=== PATIENT | male | born 1955 | race Caucasian/White ===

== ENCOUNTER → 2016-11-11 | Outpatient (CLI) | payer BC | END | disposition home or self-care (01) | LOC: GMAJ 10:57 | PROVIDERS: ATTEND Family Medicine | DX: I10 Essential (primary) hypertension (principal) ==

== ENCOUNTER → 2017-04-12 | Outpatient (CLI) | payer BC | END | disposition home or self-care (01) | LOC: GMAJ 14:28 | PROVIDERS: ATTEND Family Medicine | DX: Z00.00 Encounter for general adult medical examination without abnormal findings (principal) ==

== ENCOUNTER → 2017-05-19 | Outpatient (CLI) | payer BC ==
--- NOTE | 2017-05-20 16:54 | US ---
EXAM DESCRIPTION: Carotid Duplex: Ultrasound. CLINICAL HISTORY: OCCLUSION AND STENOSIS OF BILATERAL CAROTID ARTERI COMPARISON: None. TECHNIQUE: Transcutaneous scanning utilizing 2-dimensional and Doppler modes to evaluate the bilateral carotid systems and vertebral arteries. Percentage of diameter of stenosis or no stenosis recorded will be based upon NASCET criteria. FINDINGS: Peak systolic/end diastolic (CM-Sec) CCA Right 85/9 Left 108/39. ICA Right proximal 76/37, mid 81/36. Left proximal 54/22, Distal 66/27. Vertebral Right 57/18 Left 59/24. ECA (PS Only) Right 88 left 180. ICA/CCA peak systolic ratio: Right 1.0 Left 0.6 ICA/CCA end diastolic ratio: Right 4.0 Left 0.7 Vertebral arteries: antegrade flow. Comments: Significant atherosclerotic calcification in the bilateral common carotid bulbs and proximal ICAs. There is stenosis in the distal right CCA is 27%, diameter stenosis 21%. Area stenosis in the right CCA bulb is 21%, diameter stenosis 30%. Area stenosis in the right proximal ICA is 34%, diameter stenosis 62%. Spectral broadening in the waveform of the proximal right ICA. Area stenosis in the mid left CCA is 30%, diameter stenosis 51%. Area stenosis in the left CCA bulb is 13%, diameter stenosis 22%. Area stenosis in the proximal right ICA is 43%, identical to the diameter stenosis. Color turbulent flow in the proximal left ICA and spectral broadening in the waveform. IMPRESSION: 1. Doppler evaluation of the bilateral carotid systems and vertebral arteries shows a hemodynamically significant stenosis greater than 70%,in the proximal right ICA, but this is not seen on two-dimensional evaluation. Consider CTA because of the discordance of these results. 2. Moderate amount of plaque seen in the carotid arteries bilaterally. Bilateral vertebral arteries showed antegrade-cephalad flow. Electronically signed by: Jovanny Mejia MD 05/20/2017 4:53 PM CDT
== END | disposition home or self-care (01) ==
LOC: US 13:51
PROVIDERS: ATTEND Family Medicine
DX: I65.23 Occlusion and stenosis of bilateral carotid arteries (principal)

== ENCOUNTER → 2018-03-03 | Outpatient (CLI) | payer BC, MEDICARE | LOC: GMAJ 11:04 | PROVIDERS: ATTEND Family Medicine | DX: Z12.5 Encounter for screening for malignant neoplasm of prostate (principal) ==

== ENCOUNTER → 2019-04-06 | Outpatient (CLI) | payer BC, MEDICARE ==
--- NOTE | 2019-04-06 09:42 | MRI ---
EXAM DESCRIPTION: Lumbar Spine w/o Contrast : Magnetic Resonance Imaging. CLINICAL HISTORY: SPONDYLOSIS COMPARISON: Lumbar radiographs 11/07/2018. TECHNIQUE: Multiplanar, multiple standard sequences, non contrast MRI, lumbar spine. FINDINGS: L5-S1: The disc is well visualized on axial T2 series 501, image 3. Posterior partial discectomy. Minimal disc space loss. Partial left laminectomy. 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 Mild bilateral foraminal narrowing. L4-L5: Normal signal in the disc and disc space. Canal is patent. Evaluation limited due to magnetic susceptibility artifact from more superior. Posterior fusion hardware. Unable to evaluate the posterior elements or the foramina. L3-L4: Fusion construct posterior with bilateral transpedicular screws and unilateral connecting rods. Possible disc remnant in the disc space. No abnormal fluid around the hardware or in the canal. Canal is patent. Unable to evaluate the foramina. L2-L3: Partially obscured by metallic susceptibility artifact from below. Endplate reactive changes with anterior disc bulging and endplate ridging. Posterior disc bulge. Posterior flavum ligament thickening. AP canal diameter 6 mm. L1-L2: Disc desiccation with anterior disc space loss, endplate reactive changes, and disc bulging with endplate ridging. Posterior midline 5 mm disc protrusion or granulation tissue abutting the thecal sac. Partial left laminectomy. Hypertrophic right facet arthrosis and thickening of the ligament. Mild canal narrowing. Bilateral moderate foraminal narrowing. Conus terminates at this level. T12-L1: Desiccation of the disc. Large Schmorl's node superior L1 endplate. Thickening of the posterior ligaments. Mild canal narrowing. Mild bilateral foraminal narrowing. Mid lumbar right curvature. Paravertebral soft tissues no dominant fluid or mass. Ectasia of the aorta.. Cord normal signal and caliber. Normal marrow signal in the remaining vertebral bodies and the posterior elements. Vertebral bodies are not compressed at any level. IMPRESSION: 1. Multiple levels of disc desiccation, endplate spondylosis, disc space loss. Posterior fusion construct L3-L4 with customary position of the hardware and near-anatomic alignment. No fluid collections around the hardware or other complications. Magnetic susceptibility artifact limits evaluation at L4-5, L3-4, and L2-3. 2. Posterior left partial L5-S1 discectomy with partial left laminectomy. 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 3 L2-L3 spondylosis and posterior disc bulge or protrusion with thickening of the ligaments causing mild to moderate central canal stenosis. 4. Spondylosis L1-L2 with posterior midline disc protrusion versus granulation tissue abutting the thecal sac. Partial left laminectomy. Bilateral moderate foraminal narrowing. 5. If these findings are discordant with clinical findings, consider lumbar myelography followed by lumbar spine CT myelography scan. Electronically signed by: Jovanny Mejia MD 04/06/2019 9:40 AM CDT
--- NOTE | 2019-04-06 16:02 | CT ---
EXAM DESCRIPTION: CT ABDOMEN WITHOUT AND WITH CONTRAST CLINICAL HISTORY: ABNORMAL SERUM ENZYMES. Elevated LFTs. COMPARISON: None Available. TECHNIQUE: CT of the abdomen is performed prior to and during IV bolus administration of intravenous contrast. Oral normal contrast. FINDINGS: The lung bases are clear. The liver is at the upper limits of normal in size measuring 17 cm (craniocaudal dimension) with normal hepatic contour (without surface nodularity). No suspicious hepatic mass. The liver parenchymal attenuation is similar to the spleen, no evidence of hepatic steatosis. No intra or extrahepatic biliary ductal dilatation. The gallbladder is unremarkable without calcified gallstone. Normal appearance of the CBD. The spleen, pancreas, and kidneys are unremarkable. Small left renal cyst. Mild nodular thickening of the left adrenal gland. There is no lymphadenopathy, inflammation, or free fluid observed. Moderate mixed calcified and noncalcified atherosclerotic disease affecting the abdominal aorta and its branches. No acute osseous abnormality. Partially visualized lumbar spine fixation. IMPRESSION: Normal liver contour and enhancement. No hepatic steatosis or focal mass. This exam was performed according to our departmental dose-optimization program, which includes automated exposure control, adjustment of the mA and/or kV according to patient size and/or use of iterative reconstruction technique. Electronically signed by: Oneil Regalado DO 04/06/2019 4:00 PM CDT
== END ==
LOC: MRI 07:00
PROVIDERS: ATTEND Family Medicine
DX: R74.8 Abnormal levels of other serum enzymes (principal); M47.16 Other spondylosis with myelopathy, lumbar region; M51.06 Intervertebral disc disorders with myelopathy, lumbar region; Z98.890 Other specified postprocedural states

== ENCOUNTER → 2019-04-12 | Outpatient (CLI) | payer BC, MEDICARE | LOC: GMAJ 14:20 | PROVIDERS: ATTEND Family Medicine | DX: R74.8 Abnormal levels of other serum enzymes (principal) ==

== ENCOUNTER → 2020-01-03 | Outpatient (CLI) | payer BC, MEDICARE | LOC: GMAJ 13:57 | PROVIDERS: ATTEND Family Medicine | DX: N40.1 Benign prostatic hyperplasia with lower urinary tract symptoms (principal) ==